=== PATIENT | female | born 1970 | race Caucasian/White ===

== ENCOUNTER 2017-07-08 21:03 | Emergency (ER) | payer SELFPAY ==
[~2017-07-08] VITALS: Ht 167.6 cm; Wt 59.0 kg
--- NOTE | 2017-07-08 21:25 | Emergency Room Report ---
History of Present Illness General Chief Complaint: Overdose Source: Patient, EMS Present Illness HPI 47-year-old female brought in by EMS from home with suspected overdose, altered mental status. Per EMS patient was minimally responsive, but responded to Narcan. Patient herself now alert and oriented endorses 1 mg of Xanax. States usually takes Xanax as needed for panic, anxiety. Denies other medications or coingestions. Denies SI. Currently denies chest pain, shortness of breath, headache, abdominal pain, vomiting. States she is under a lot of stress with her father undergoing bypass surgery soon, recently moved back home to help her parents. Allergies: Coded Allergies: No Known Allergies (Unverified , 07/08/17) Patient History Past Medical History: psych hx Past Surgical History: none Pertinent Family History: none Social History: Denies: smoking, alcohol use, drug use Last Menstrual Period: now Now: No Immunizations: UTD Reviewed Nursing Documentation: PMH: Agreed, PSxH: Agreed Nursing Documentation-PMH Past Medical History: No Stated History Review of Systems All Other Systems: negative except mentioned in HPI Physical Exam Vital Signs Date Time Temp Pulse Resp B/P (MAP) Pulse Ox O2 Delivery O2 Flow Rate FiO2 07/08/17 21:03 88 16 156/79 99 Room Air Sp02 EP Interpretation: reviewed, normal General Appearance: normal inspection, well appearing, no apparent distress, alert, GCS 15, non-toxic, other - tearful Head: normocephalic, atraumatic Eyes: bilateral eye PERRL, bilateral eye EOMI ENT: normal ENT inspection, hearing grossly normal, normal pharynx, no angioedema, normal voice, TMs + canals normal, uvula midline, moist mucus membranes Neck: normal inspection, full range of motion, supple, thyroid normal, no meningismus, no bony tend Respiratory: normal inspection, lungs clear, normal breath sounds, no rhonchi, no respiratory distress, no retraction, no accessory muscle use, no wheezing, speaking full sentences Cardiovascular #1: regular rate, rhythm, no edema, no JVD, normal capillary refill Gastrointestinal: normal inspection, normal bowel sounds, non tender, soft, no mass, no peritonitis, non-distended, no guarding, no hernia, no pulsatile mass Genitourinary: no CVA tenderness Musculoskeletal: normal inspection, back normal, normal range of motion, no calf tenderness, pelvis stable, Courtney's Sign negative Neurologic: normal inspection, alert, oriented x3, responsive, hospice music therapy III-XII nml as tested, motor strength/tone normal, cerebellar normal, normal gait, speech normal Psychiatric: normal inspection, judgement/insight normal, mood/affect normal, no suicidal/homicidal ideation, no delusions Skin: normal inspection, normal color, no rash Lymphatic: normal inspection, no adenopathy Medical Decision Making Diagnostic Impression: Primary Impression: Altered mental status Qualified Codes: R41.82 - Altered mental status, unspecified Additional Impression: Drug overdose Qualified Codes: T50.901A - Poisoning by unspecified drugs, medicaments and biological substances, accidental (unintentional), initial encounter ER Course VSS, afebrile Alert and oriented, GCS15 Atraumatic Glucose 114 Suspected xanax accidental OD Boyfriend Patel Bruce arrives later - 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 Denies using heroin, opiods today. After initially agreeing to evaluation, monitoring, patient stating she feels better, wants to go home. Friend will drive them home. She is A&OX3, has capacity, understands risks of leaving. Will return here or nearest ER if doesnt feel better. Patient completed AMA paperwork EKG Diagnostic Results Rate: normal Rhythm: NSR ST Segments: no acute changes ASA given to the pt in ED: No Rhythm Strip Diag. Results EP Interpretation: yes Rate: 87 Rhythm: NSR, no PVC's, no ectopy Last Vital Signs Date Time Temp Pulse Resp B/P (MAP) Pulse Ox O2 Delivery O2 Flow Rate FiO2 07/08/17 21:03 88 16 156/79 99 Room Air Status: improved Disposition: AGAINST MEDICAL ADVICE MANUEL HARDY M.D. Jul 08, 2017 21:25
[2017-07-08 22:04] VITALS: BP 156/79
--- NOTE | 2017-07-09 15:16 | Cardiology Report ---
APPROVED REPORT EKG Measurement Heart [id number] Normal sinus rhythm Normal ECG
== END 2017-07-08 22:04 | disposition left against medical advice (07) ==
LOC: EDBD 21:03 → EMR 21:50
DX: T50.901A Poisoning by unspecified drugs, medicaments and biological substances, accidental (unintentional), initial encounter (principal); R41.82 Altered mental status, unspecified
CPT/HCPCS: 93005; 99283